=== PATIENT | male | born 1975 | race Caucasian/White ===

== ENCOUNTER 2023-09-05 10:17 | Emergency (ER) | payer SELFPAY ==
[~2023-09-05] VITALS: Ht 182.9 cm; Wt 81.6 kg
[2023-09-05 11:03] VITALS: BP 122/72; PULSE 86; RESP 17; O2SAT 96
[2023-09-05] MEDS ORDERED: CEPH-585 PO (11:03)
[2023-09-05] MEDS ORDERED: SULF1TAB49 PO (11:03)
--- NOTE | 2023-09-05 11:08 | NUR ---
I have reviewed and agree with all interventions, assessments performed and documented by [employer]
[2023-09-05 11:12] VITALS: TEMP 97.7
== END 2023-09-05 11:16 | disposition home or self-care (01) ==
LOC: ER 10:18
DX: L03.113 Cellulitis of right upper limb (principal)
CPT/HCPCS: 99283